=== PATIENT | male | born 2000 | race Two or more races ===

== ENCOUNTER 2021-10-29 11:28 | Emergency (ER) | payer SELFPAY ==
--- NOTE | 2021-10-29 11:43 | ER ---
Nurse's Notes [facility] Name: Santos Bradley Age: 20 yrs Sex: Male : 2000 Arrival Date: 10/29/2021 Time: 11:31 Bed Waiting [facility] MD: Diagnosis: Sciatica, right side Presentation: 10/29 11:35 Chief complaint: Patient states: When standing up having back spasm that radiate to the ww right leg. Coronavirus screen: Client denies travel out of the [place] in the last 14 days. Ebola Screen: Patient denies travel to an Ebola-affected area in the 21 days before illness onset. Initial Sepsis Screen: Does the patient meet any 2 criteria? No. Patient's initial sepsis screen is negative. Does the patient have a suspected source of infection? No. Patient's initial sepsis screen is negative. Risk Assessment: Do you want to hurt yourself or someone else? Patient reports no desire to harm self or others. Onset of symptoms is unknown. 11:35 Method Of Arrival: Ambulatory ww 11:35 Acuity: TRISTON 4 ww Triage Assessment: 11:35 General: Appears in no apparent distress. Behavior is cooperative. Pain: Complains of ww pain in back and buttocks. Neuro: Level of Consciousness is awake, alert, obeys commands, Oriented to person, place, time, situation, Speech is normal. Cardiovascular: Patient's skin is warm and dry. Respiratory: Airway is patent Respiratory effort is even, unlabored, Respiratory pattern is regular, symmetrical. GI: No signs and/or symptoms were reported involving the gastrointestinal system. : No signs and/or symptoms were reported regarding the genitourinary system. Derm: Skin is healthy with good turgor. Musculoskeletal: Capillary refill < 3 seconds, Reports pain in back and buttocks. Historical: - Allergies: 11:37 No Known Allergies; ww - Home Meds: 11:37 None [Active]; ww - PMHx: 11:37 None; ww - PSHx: 11:37 None; ww - Immunization history:: Client reports receiving the 2nd dose of the Covid vaccine. - Social history:: Smoking status: Patient reports the use of cigarette tobacco products, smokes one-half pack cigarettes per day. Screenin:39 Abuse screen: Denies threats or abuse. Denies injuries from another. Nutritional ww screening: No deficits noted. Tuberculosis screening: No symptoms or risk factors identified. Fall Risk None identified. Vital Signs: 11:37 BP 148 / 100; Pulse 119; Resp 18; Temp 97.0; Pulse Ox 100% ; Weight 113.4 kg; Height 6 ww ft. 4 in. (193.04 cm); Pain 6/10; 11:37 BP 153 / 93; Pulse 110; Resp 18; Pulse Ox 100% ; ww 11:37 Body Mass Index 30.43 (113.40 kg, 193.04 cm) ww ED Course: 11:31 Patient arrived in ED. as 11:32 [facility]C [facility] kb 11:32 Rai Barfield MD is Attending Physician. kb 11:35 Arm band placed on right wrist. ww 11:36 Triage completed. ww 11:39 No provider procedures requiring assistance completed. Patient did not have IV access ww during this emergency room visit. Administered Medications: No medications were administered Outcome: 11:43 Discharge ordered by . kb 12:03 Discharged to home ambulatory. ww 12:03 Condition: stable 12:03 Discharge instructions given to patient, Instructed on discharge instructions, follow up and referral plans. no drinking with medication, no driving heavy equipment, medication usage, safety practices, Demonstrated understanding of instructions, follow-up care, medications, Prescriptions given X 2. 12:03 Patient left the ED. ww Signatures: Laura Quezada FNP-C FNP-Ckb Martinez, Amelia as Wood, Whitney, RN RN ww
--- NOTE | 2021-10-29 11:43 | EDPHYS ---
Physician Documentation [facility] Name: Santos Bradley Age: 20 yrs Sex: Male : 2000 Arrival Date: 10/29/2021 Time: 11:31 Bed Waiting Private MD: ED Physician Rai Barfield HPI: 10/29 11:40 This 20 yrs old Male presents to ER via Ambulatory with complaints of Back Pain. kb 11:40 The patient presents with pain that is acute. The symptoms are located in the low back. kb Onset: The symptoms/episode began/occurred 3 month(s) ago. The pain radiates to the right leg. Associated signs and symptoms: The patient has no apparent associated signs or symptoms. The problem was sustained without known cause. Modifying factors: The patient symptoms are alleviated by nothing, the patient symptoms are aggravated by any movement. Severity of symptoms: At their worst the symptoms were moderate, in the emergency department the symptoms are unchanged. The patient has not experienced similar symptoms in the past. The patient has not recently seen a physician. Pt reports right lower back/upper buttock pain that started 3 months ago and has been intermittent. No vertebral tenderness noted. States the pain radiates down right leg, worse with changing positions from sitting to standing. States it started after walking up a flight of stairs 3 months ago, but no injury or trauma. Denies incontinence or any other bowel/bladder symptoms. Historical: - Allergies: 11:37 No Known Allergies; ww - Home Meds: 11:37 None [Active]; ww - PMHx: 11:37 None; ww - PSHx: 11:37 None; ww - Immunization history:: Client reports receiving the 2nd dose of the Covid vaccine. - Social history:: Smoking status: Patient reports the use of cigarette tobacco products, smokes one-half pack cigarettes per day. ROS: 11:40 Constitutional: Negative for fever, chills, and weight loss. kb 11:40 Back: Positive for pain at rest, pain with movement, radiated pain, of the right low back. 11:40 All other systems are negative. Exam: 11:40 Constitutional: This is a well developed, well nourished patient who is awake, alert, kb and in no acute distress. Head/Face: Normocephalic, atraumatic. ENT: Moist Mucous membranes Respiratory: Respirations even and unlabored. No increased work of breathing. Talking in full sentences Skin: Warm, dry with normal turgor. Normal color. MS/ Extremity: Pulses equal, no cyanosis. Neurovascular intact. Full, normal range of motion. Neuro: Awake and alert, GCS 15, oriented to person, place, time, and situation. Moves all extremities. Normal gait. Psych: Awake, alert, with orientation to person, place and time. Behavior, mood, and affect are within normal limits. 11:40 Back: pain, that is moderate, of the right low back, ROM is painful, normal spinal alignment noted, CVA tenderness, is absent. Vital Signs: 11:37 BP 148 / 100; Pulse 119; Resp 18; Temp 97.0; Pulse Ox 100% ; Weight 113.4 kg; Height 6 ww ft. 4 in. (193.04 cm); Pain 6/10; 11:37 BP 153 / 93; Pulse 110; Resp 18; Pulse Ox 100% ; ww 11:37 Body Mass Index 30.43 (113.40 kg, 193.04 cm) ww MDM: 11:39 Data reviewed: vital signs, nurses notes. Data interpreted: Pulse oximetry: on room air kb is 100 %. Interpretation: normal. Counseling: I had a detailed discussion with the patient and/or guardian regarding: the historical points, exam findings, and any diagnostic results supporting the discharge/admit diagnosis, the need for outpatient follow up, a family practitioner, to return to the emergency department if symptoms worsen or persist or if there are any questions or concerns that arise at home. 11:43 Patient medically screened. kb Administered Medications: No medications were administered Disposition: 16:37 Co-signature as Attending Physician, Rai Barfield MD I agree with the assessment and kdr plan of care. Disposition Summary: 10/29/21 11:43 Discharge Ordered Location: Home kb Condition: Stable kb Diagnosis - Sciatica, right side kb Followup: kb - With: Emergency Department - When: As needed - Reason: Worsening of condition Followup: kb - With: Private Physician - When: 2 - 3 days - Reason: Recheck today's complaints, Continuance of care, Re-evaluation by your physician Discharge Instructions: - Discharge Summary Sheet kb - Sciatica, [id number] kb Forms: - Medication Reconciliation Form kb - Thank You Letter kb - Antibiotic Education kb - Prescription Opioid Use kb - Work release form ww Prescriptions: - Cyclobenzaprine 10 mg Oral Tablet - take 1 tablet by ORAL route every 8 hours As needed; 15 tablet; Refills: 0, kb Product Selection Permitted - Diclofenac Sodium 75 mg Oral tablet,delayed release (DR/EC) - take 1 tablet by ORAL route 2 times per day As needed; 30 tablet; Refills: 0, kb Product Selection Permitted Signatures: Laura Quezada, SYLVIA-Ivan WARD-Rai Morris MD MD kdr Wood, Whitney RN RN ww
[2021-10-29 12:09] VITALS: BP 153/93; TEMP 97; O2SAT 100
== END 2021-10-29 12:03 | disposition home or self-care (01) ==
LOC: ER 11:28
DX: M54.41 Lumbago with sciatica, right side (principal); F17.210 Nicotine dependence, cigarettes, uncomplicated
CPT/HCPCS: 99282

== ENCOUNTER 2021-11-01 10:35 | Emergency (ER) | payer SELFPAY ==
--- OUTSIDE RECORDS SUMMARY | 2021-11-01 10:37 | XMS REPORT | Continuity of Care Document ---
:2000 Author Organization [facility] t Address [address] [place] [address] Care Team Providers Name Role Phone nida Attending Clinician Unavailable MOISE ALAS Attending Clinician Unavailable MIRIAM BLANTON Attending Clinician Unavailable Problems This patient has no known problems. Allergies, Adverse Reactions, Alerts This patient has no known allergies or adverse reactions. Medications This patient has no known medications. Procedures This patient has no known procedures. Encounters Start End Encounter Admission Attending Care Care Encounter Source Date/Time Date/Time Type Type Clinicians Facility Department ID 2021-07-[address] [facility] [id number] [facility] 05:03:17 [id number] [facility] 2021-06-24 2021-06-24 Emergency E FAVIOLA ALAS FB FB [id number] [facility] 10:31:00 10:58:00 2021-06-20 2021-06-20 Emergency Heather BLANTON ANANT FB [id number] FB 11:52:00 14:46:00 PITO Results This patient has no known results.
[2021-11-01 12:15] LABS: SARS-COV-2 RT PCR NEGATIVE (NEGATIVE)
--- NOTE | 2021-11-01 12:42 | ER ---
Nurse's Notes [facility] Name: Santos Bradley Age: 20 yrs Sex: Male : 2000 Arrival Date: 11/01/2021 Time: 10:35 Bed 11 Private MD: Diagnosis: Influenza Presentation: 11/01 10:39 Chief complaint: Patient states: "I heard the flu is going around and I think I have ab2 it. I've been coughing, body aches and chills for the past few days.". Coronavirus screen: Vaccine status: Patient reports receiving the 2nd dose of the covid vaccine. Client denies travel out of the [place] in the last 14 days. chills, congestion, cough unrelated to allergies, muscle pain, Client presents with at least one sign or symptom that may indicate coronavirus-19. Ebola Screen: Patient negative for fever greater than or equal to 101.5 degrees Fahrenheit, and additional compatible Ebola Virus Disease symptoms Patient denies exposure to infectious person. Patient denies travel to an Ebola-affected area in the 21 days before illness onset. No symptoms or risks identified at this time. Initial Sepsis Screen: Does the patient meet any 2 criteria? No. Patient's initial sepsis screen is negative. Does the patient have a suspected source of infection? No. Patient's initial sepsis screen is negative. Risk Assessment: Do you want to hurt yourself or someone else? Patient reports no desire to harm self or others. Onset of symptoms is unknown. 10:39 Method Of Arrival: Ambulatory ab2 10:39 Acuity: TRISTON 4 ab2 Triage Assessment: 10:40 General: Appears in no apparent distress. comfortable, Behavior is calm, cooperative, ab2 appropriate for age. Pain: Denies pain. Respiratory: Reports cough that is. Historical: - Allergies: 10:39 No Known Allergies; ab2 - Home Meds: 10:39 None [Active]; ab2 - PMHx: 10:39 None; ab2 - PSHx: 10:39 None; ab2 - Immunization history:: Adult Immunizations up to date. - Social history:: Smoking status: Patient reports the use of cigarette tobacco products, smokes one pack cigarettes per day. Screenin:22 Abuse screen: Denies threats or abuse. Denies injuries from another. Nutritional ss screening: No deficits noted. Tuberculosis screening: Never had TB. Fall Risk None identified. Assessment: 11:15 General: Appears in no apparent distress. comfortable, Reports feeling ill for 2-3 ss days. Neuro: Level of Consciousness is awake, alert, obeys commands, Oriented to person, place, time, situation. Cardiovascular: Capillary refill < 3 seconds is brisk in bilateral fingers. Respiratory: Airway is patent Respiratory effort is even, unlabored. EENT: Nares are clear. Derm: Skin is intact, is healthy with good turgor, Skin is dry, Skin is pink, warm \\T\\ dry. normal. 12:22 Reassessment: Patient appears in no apparent distress at this time. Patient and/or ss family updated on plan of care and expected duration. Pain level reassessed. Patient is alert, oriented x 3, equal unlabored respirations, skin warm/dry/pink. Vital Signs: 10:39 Pulse 100; Resp 18; Temp 97.9(TE); Pulse Ox 98% ; Weight 113.4 kg; Height 6 ft. 4 in. ss (193.04 cm); Pain 0/10; 10:41 BP 146 / 92; ab2 10:39 Body Mass Index 30.43 (113.40 kg, 193.04 cm) ss ED Course: 10:35 Patient arrived in ED. am2 10:40 Triage completed. ab2 10:40 Arm band placed on right wrist. ab2 10:43 Micky Lees PA is PHCP. [facility] 10:43 Walker Corona MD is Attending Physician. [facility] 12:22 Yasmin Law RN is Primary Nurse. ss 12:22 Patient has correct armband on for positive identification. ss 12:22 No provider procedures requiring assistance completed. Patient did not have IV access ss during this emergency room visit. Administered Medications: No medications were administered Outcome: 12:41 Discharge ordered by . [facility] 12:49 Discharged to home ambulatory. 12:49 Condition: good 12:49 Discharge instructions given to patient, family, Instructed on discharge instructions, follow up and referral plans. Demonstrated understanding of instructions, follow-up care, medications, Prescriptions given X 1. 13:03 Patient left the ED. Signatures: Micky Lees PA PA jmm Smirch, Shelby, MARKOS RN Marnie Emery am2 Jayme Massey ab2 Corrections: (The following items were deleted from the chart) 11:56 10:39 Pulse 100bpm; Resp 98bpm; Pulse Ox 98%; Temp 97.9F Temporal; 113.4 kg; Height 6 ss ft. 4 in.; BMI: 30.4; Pain 0/10; ab2
--- NOTE | 2021-11-01 12:42 | EDPHYS ---
Physician Documentation [facility] Name: Santos Bradley Age: 20 yrs Sex: Male : 2000 Arrival Date: 11/01/2021 Time: 10:35 Bed 11 Private MD: ED Physician Walker Corona HPI: 11/01 12:29 This 20 yrs old Male presents to ER via Ambulatory with complaints of Flu Symptoms. jmm 12:29 The patient or guardian reports cough. Onset: The symptoms/episode began/occurred jmm gradually, 2 day(s) ago. Modifying factors: The symptoms are alleviated by nothing. the symptoms are aggravated by nothing. Associated signs and symptoms: Pertinent positives: sore throat, Pertinent negatives: fever. The patient has not experienced similar symptoms in the past. Historical: - Allergies: 10:39 No Known Allergies; ab2 - Home Meds: 10:39 None [Active]; ab2 - PMHx: 10:39 None; ab2 - PSHx: 10:39 None; ab2 - Immunization history:: Adult Immunizations up to date. - Social history:: Smoking status: Patient reports the use of cigarette tobacco products, smokes one pack cigarettes per day. ROS: 12:29 Constitutional: Positive for body aches, chills. jmm 12:29 Respiratory: Positive for cough. 12:29 All other systems are negative. Exam: 12:29 Constitutional: This is a well developed, well nourished patient who is awake, alert, jmm and in no acute distress. Head/Face: atraumatic. Eyes: EOMI, no conjunctival erythema appreciated ENT: Moist Mucus Membranes Neck: Trachea midline, Supple Chest/axilla: Normal chest wall appearance and motion. Cardiovascular: Regular rate and rhythm. No edema appreciated Respiratory: Normal respirations, no respiratory distress appreciated Abdomen/GI: Non distended, soft Back: Normal ROM Skin: General appearance color normal MS/ Extremity: Moves all extremities, no obvious deformities appreciated, no edema noted to the lower extremities Neuro: Awake and alert Psych: Behavior is normal, Mood is normal, Patient is cooperative and pleasant Vital Signs: 10:39 Pulse 100; Resp 18; Temp 97.9(TE); Pulse Ox 98% ; Weight 113.4 kg; Height 6 ft. 4 in. ss (193.04 cm); Pain 0/10; 10:41 BP 146 / 92; ab2 10:39 Body Mass Index 30.43 (113.40 kg, 193.04 cm) ss MDM: 10:55 Patient medically screened. [facility] 12:29 Data reviewed: vital signs, nurses notes. Counseling: I had a detailed discussion with boni the patient and/or guardian regarding: the historical points, exam findings, and any diagnostic results supporting the discharge/admit diagnosis, the need for outpatient follow up, to return to the emergency department if symptoms worsen or persist or if there are any questions or concerns that arise at home. 11/01 10:44 Order name: COVID-19/FLU A+B (Document "Date of Onset" if Symptomatic); Complete Time: ab2 12:18 Administered Medications: No medications were administered Disposition: 18:45 Co-signature as Attending Physician, Walker Corona MD. rn Disposition Summary: 11/01/21 12:41 Discharge Ordered Location: Home [facility] Condition: Stable [facility] Diagnosis - Influenza [facility] Followup: [facility] - With: Private Physician - When: 2 - 3 days - Reason: Recheck today's complaints, Continuance of care, Re-evaluation by your physician Discharge Instructions: - Discharge Summary Sheet [facility] - Influenza, Adult [facility] Forms: - Medication Reconciliation Form [facility] - Thank You Letter [facility] - Work release form bd - Antibiotic Education [facility] - Prescription Opioid Use [facility] Prescriptions: - promethazine-DM - take 10 milliliter by ORAL route every 6 hours; 120 milliliter; Refills: 0, [facility] Product Selection Permitted Signatures: Dispatcher [employer] Micky Samuel PA PA jmm Nieto, Roman, MD MD rn Bleininger, Alexis ab2
[2021-11-01 13:09] VITALS: TEMP 97.9; O2SAT 98
[2021-11-01 13:10] VITALS: BP 146/92
== END 2021-11-01 13:03 | disposition home or self-care (01) ==
LOC: ER 10:35
DX: J10.1 Influenza due to other identified influenza virus with other respiratory manifestations (principal); Z20.822 Contact with and (suspected) exposure to COVID-19; F17.210 Nicotine dependence, cigarettes, uncomplicated
CPT/HCPCS: 0240U; 99282